=== PATIENT | female | born 1945 | race Caucasian/White ===

== ENCOUNTER 2022-05-21 05:36 | Inpatient (IN) ==
[2022-05-21] MEDS ORDERED: Lactated Ringers 1000 ml BAG 1,000 ML IV SCH (06:00)
[2022-05-21] MEDS ORDERED: Buffered Lidocaine 1% SYRIN 1 ml INTRADERM ONE (06:00)
[2022-05-21] MEDS ORDERED: Clindamycin 900 MG/D5W BAG 900 MG/50 ML BAG IVPB ONE (06:10)
[2022-05-21 06:43] LABS: Potassium 4.8 mmol/L (3.5-5.0)
[2022-05-21] MEDS ORDERED: fentaNYL 100 mcg/2 ml 50 MCG/ML VIAL ONE ×2 (07:16→07:19)
[2022-05-21] MEDS ORDERED: Midazolam 2 mg/2 ml VIAL 1 mg/ml 2 ml VIAL (2 mg) ONE ×2 (07:16→07:19)
[2022-05-21] MEDS ORDERED: ROPIVACAINE 5 MG/ML 30 ML BTL (0.5%) ONE ×2 (07:18→09:16)
[2022-05-21] MEDS ORDERED: Phenylephrine IV 10 MG/ML 1 ml VIAL ONE ×2 (07:53→11:22)
[2022-05-21] MEDS ORDERED: Ondansetron 4 mg VIAL 2 MG/ML 2 ml VIAL ONE (08:24)
[2022-05-21] MEDS ORDERED: Dexamethasone IV 4 MG/ML VIAL 1 ml VIAL ONE (08:24)
[2022-05-21] MEDS ORDERED: HYDROmorphone 1 MG/1 ML SYRINGE IV PRN (08:26)
[2022-05-21] MEDS ORDERED: Prochlorperazine 5 mg/ml 2 ml VIAL (10 mg) IV PRN (08:26)
[2022-05-21] MEDS ORDERED: Naloxone 0.4 mg VIAL 0.4 mg/ml 1 ml VIAL IV PRN (08:26)
[2022-05-21] MEDS ORDERED: Morphine 2 MG/ML SYRINGE IV PRN (09:09)
[2022-05-21] MEDS ORDERED: Magnesium Hydroxide LIQ 30 ML UDC PO PRN (09:09)
[2022-05-21] MEDS ORDERED: Lactulose 30 ml UDC PO PRN (09:09)
[2022-05-21] MEDS ORDERED: Ondansetron ODT 4 mg TAB 4 MG TAB PO PRN (09:09)
[2022-05-21] MEDS ORDERED: Ondansetron 4 mg VIAL 2 MG/ML 2 ml VIAL IV PRN (09:09)
[2022-05-21] MEDS ORDERED: Propofol 10 MG/ML 20 ML BTL ONE ×2 (09:15→11:25)
[2022-05-21] MEDS ORDERED: Lidocaine 2% PF 5 ML VIAL ONE (11:22)
[2022-05-21] MEDS ORDERED: HYDROmorphone 1 MG/1 ML SYRINGE ONE (11:45)
[2022-05-21] MEDS: Lactated Ringers 1000 ml BAG 1,000 ML IV SCH (13:35)
[2022-05-21] MEDS ORDERED: Albuterol HFA INHALER 8 gm MDI INH PRN (13:40)
[2022-05-21] MEDS ORDERED: Dextrose 50% Syringe 50 ml 25 GM/50 ML SYRINGE IV PUSH PRN (13:42)
[2022-05-21] MEDS: Clindamycin 600 MG/D5W BAG 600 MG/50 ML BAG IV SCH (16:13)
[2022-05-21] MEDS: Magnesium Hydroxide LIQ 30 ML UDC PO SCH (21:54)
[2022-05-22] MEDS: Lactated Ringers 1000 ml BAG 1,000 ML IV SCH (00:15)
[2022-05-22] MEDS: Clindamycin 600 MG/D5W BAG 600 MG/50 ML BAG IV SCH ×2 (00:16→10:28)
[2022-05-22 07:19] LABS: Hematocrit 39 % (35-47); Hemoglobin 12.2 g/dL (12.0-16.0); Mean Platelet Volume 9.8 fL (7.4-10.4); Platelet Count 219 10^3/uL (150-450)
[2022-05-22 07:34] LABS: Calcium 8.7 mg/dL (8.6-10.3); eGFR CKD-EPI 57.4 (>60)
[2022-05-22] MEDS: Aspirin EC 81 mg TAB.EC (enteric coated) PO SCH (08:31)
[2022-05-22] MEDS: Magnesium Hydroxide LIQ 30 ML UDC PO SCH ×2 (08:31→20:52)
[2022-05-22] MEDS: Vitamin THERAPEUTIC TAB PO SCH (08:31)
[2022-05-22 14:00] LABS: PO2 Arterial 71 mmHg (80-100)
[2022-05-22 14:12] LABS: PCO2 Arterial 79 mmHg (35-45)
[2022-05-22] MEDS: Acetaminophen IV 1 GM/100ML 1,000 MG/100 ML BAG IV SCH (17:04)
[2022-05-22 17:29] LABS: PO2 Arterial 87 mmHg (80-100)
[2022-05-22 17:31] LABS: PCO2 Arterial 72 mmHg (35-45)
[2022-05-23] MEDS ORDERED: Morphine 10 MG/ML VIAL (1 ml) IV ONE (00:51)
[2022-05-23] MEDS ORDERED: Morphine 2 MG/ML SYRINGE IV ONE (00:52)
[2022-05-23] MEDS: Acetaminophen IV 1 GM/100ML 1,000 MG/100 ML BAG IV SCH ×2 (01:05→09:37)
[2022-05-23 06:06] LABS: ABS Lymphocytes 1.1 10^3/ul (1.0-4.8); ABS Monocytes 1.4 10^3/ul (0-0.8); ABS Neutrophils 8.9 10^3/ul (1.5-7.7); Eosinophil % 0.1 %; Hematocrit 38 % (35-47); Hemoglobin 12.5 g/dL (12.0-16.0); Lymphocyte % 9.7 %; Mean Corpuscular HGB Conc 33 g/dL (31-36); Mean Corpuscular Hemoglobin 31 pg (27-31); Mean Corpuscular Volume 94 fL (80-97); Mean Platelet Volume 9.4 fL (7.4-10.4); Platelet Count 207 10^3/uL (150-450); Red Blood Count 4.05 10^6 /uL (3.70-4.87); Red Cell Distribution Width 14 % (10-15); White Blood Count 11.5 10^3/uL (3.5-10.8)
[2022-05-23 06:35] LABS: C Reactive Protein 153.78 mg/L (<8.01); Calcium 8.9 mg/dL (8.6-10.3); Potassium 4.9 mmol/L (3.5-5.0); eGFR CKD-EPI 80.4 (>60)
[2022-05-23 09:15] LABS: PCO2 Arterial 58 mmHg (35-45); PO2 Arterial 79 mmHg (80-100)
[2022-05-23] MEDS: Aspirin EC 81 mg TAB.EC (enteric coated) PO SCH (09:38)
[2022-05-23] MEDS: Vitamin THERAPEUTIC TAB PO SCH (09:39)
[2022-05-23] MEDS: Magnesium Hydroxide LIQ 30 ML UDC PO SCH ×2 (09:39→22:44)
[2022-05-23] MEDS: Albuterol/Ipratropium NEB.SOL (2.5/0.5 MG) 3 ML NEB.SOLN INH SCH ×3 (11:11→20:01)
[2022-05-23] MEDS: Nicotine Lozenge mini 2 MG LOZNG.MINI MT PRN (11:56)
[2022-05-23] MEDS ORDERED: Nicotine PATCH 14 MG/24 HR PATCH TRANSDERM SCH (12:00)
[2022-05-23] MEDS ORDERED: Furosemide 40 mg/4 ml IV VIAL IV SLOW PU ONE (16:21)
[2022-05-23] MEDS ORDERED: Nicotine PATCH 21 MG/24 HR PATCH TRANSDERM SCH (17:00)
[2022-05-24 06:50] LABS: Hematocrit 52 % (35-47); Hemoglobin 16.8 g/dL (12.0-16.0); Mean Platelet Volume 10.6 fL (7.4-10.4); Platelet Count 172 10^3/uL (150-450)
[2022-05-24] MEDS: Albuterol/Ipratropium NEB.SOL (2.5/0.5 MG) 3 ML NEB.SOLN INH SCH (07:36)
[2022-05-24 08:40] LABS: ABS Lymphocytes 1.2 10^3/ul (1.0-4.8); ABS Monocytes 1.3 10^3/ul (0-0.8); ABS Neutrophils 9.5 10^3/ul (1.5-7.7); Eosinophil % 0.2 %; Hematocrit 42 % (35-47); Hemoglobin 13.6 g/dL (12.0-16.0); Lymphocyte % 10.1 %; Mean Corpuscular HGB Conc 33 g/dL (31-36); Mean Corpuscular Hemoglobin 31 pg (27-31); Mean Corpuscular Volume 94 fL (80-97); Mean Platelet Volume 9.3 fL (7.4-10.4); Platelet Count 229 10^3/uL (150-450); Red Blood Count 4.45 10^6 /uL (3.70-4.87); Red Cell Distribution Width 14 % (10-15); White Blood Count 12.1 10^3/uL (3.5-10.8)
[2022-05-24] MEDS: Aspirin EC 81 mg TAB.EC (enteric coated) PO SCH (09:18)
[2022-05-24] MEDS: Vitamin THERAPEUTIC TAB PO SCH (09:18)
[2022-05-24] MEDS: Magnesium Hydroxide LIQ 30 ML UDC PO SCH ×2 (09:19→22:16)
[2022-05-24 09:22] LABS: Calcium 9.4 mg/dL (8.6-10.3); Potassium 4.6 mmol/L (3.5-5.0); eGFR CKD-EPI 72.4 (>60)
[2022-05-24] MEDS ORDERED: Albuterol/Ipratropium NEB.SOL (2.5/0.5 MG) 3 ML NEB.SOLN INH PRN (09:38)
[2022-05-25 08:26] LABS: ABS Basophils 0.1 10^3/ul (0-0.2); ABS Eosinophils 0.1 10^3/ul (0-0.6); ABS Lymphocytes 1.2 10^3/ul (1.0-4.8); ABS Neutrophils 7.9 10^3/ul (1.5-7.7); Eosinophil % 1.3 %; Hematocrit 41 % (35-47); Hemoglobin 13.3 g/dL (12.0-16.0); Lymphocyte % 11.9 %; Mean Corpuscular HGB Conc 33 g/dL (31-36); Mean Corpuscular Hemoglobin 31 pg (27-31); Mean Corpuscular Volume 93 fL (80-97); Mean Platelet Volume 9.4 fL (7.4-10.4); Platelet Count 266 10^3/uL (150-450); Red Blood Count 4.35 10^6 /uL (3.70-4.87); Red Cell Distribution Width 14 % (10-15); White Blood Count 10.4 10^3/uL (3.5-10.8)
[2022-05-25] MEDS: Magnesium Hydroxide LIQ 30 ML UDC PO SCH ×2 (08:58→20:55)
[2022-05-25 09:01] LABS: Calcium 9.5 mg/dL (8.6-10.3); Potassium 4.6 mmol/L (3.5-5.0); eGFR CKD-EPI 63.3 (>60)
[2022-05-25] MEDS: Vitamin THERAPEUTIC TAB PO SCH (09:07)
[2022-05-25] MEDS: Aspirin EC 81 mg TAB.EC (enteric coated) PO SCH (09:08)
[2022-05-25 10:27] LABS: Urine Appearance Cloudy; Urine Bilirubin Negative (Negative); Urine Blood 3+ (Negative); Urine Color Yellow; Urine Glucose Negative (Negative); Urine Ketones Negative (Negative); Urine Nitrite Negative (Negative); Urine Protein 1+(30 mg/dL) (Negative); Urine Specific Gravity 1.019 (1.002-1.030); Urine Urobilinogen Negative (Negative)
[2022-05-25 10:42] LABS: Urine Squamous Epithelial Cell Present (Absent)
[2022-05-25 10:43] LABS: Urine Red Blood Cell 3+(>10/hpf) (Absent); Urine White Blood Cell 1+(6-10/hpf) (Absent)
[2022-05-25 10:44] LABS: Urine Bacteria 1+ (Absent)
[2022-05-25] MEDS: Nicotine Lozenge mini 2 MG LOZNG.MINI MT PRN (14:54)
[2022-05-25] MEDS ORDERED: NS 0.9% 250 ml 250 ML IV ONE (18:05)
[2022-05-25 19:00] LABS: Magnesium 2.3 mg/dL (1.9-2.7)
[2022-05-26 08:19] LABS: Hematocrit 41 % (35-47); Hemoglobin 13.5 g/dL (12.0-16.0); Mean Platelet Volume 9.3 fL (7.4-10.4); Platelet Count 256 10^3/uL (150-450)
[2022-05-26] MEDS: Magnesium Hydroxide LIQ 30 ML UDC PO SCH (08:42)
[2022-05-26] MEDS: Vitamin THERAPEUTIC TAB PO SCH (08:43)
[2022-05-26] MEDS: Aspirin EC 81 mg TAB.EC (enteric coated) PO SCH (08:43)
[2022-05-26] MEDS: Nicotine Lozenge mini 2 MG LOZNG.MINI MT PRN (08:45)
[2022-05-26 09:13] LABS: Calcium 9.2 mg/dL (8.6-10.3); Potassium 4.8 mmol/L (3.5-5.0); eGFR CKD-EPI 73.5 (>60)
[2022-05-26 11:46] VITALS: BP 129/77
== END 2022-05-26 14:00 | disposition home or self-care (01) | DRG 469 ==
LOC: AA 05:36 → SSU 12:43 → ICU 05-22 15:13 → SSU 05-23 18:02
PROVIDERS: ADMIT Orthopaedic Surgery Adult Reconstructive Orthopaedic Surgery; ATTEND Orthopaedic Surgery Adult Reconstructive Orthopaedic Surgery